=== PATIENT | female | born 2005 | race Caucasian/White ===

== ENCOUNTER 2023-11-06 06:52 | Outpatient (REF) | payer OTHER, SELFPAY ==
--- NOTE | ~2023-11-06 | US_ITS ---
EXAMINATION: US PELVIS CLINICAL INFORMATION: Irregular menses. COMPARISON: None available. TECHNIQUE: Ultrasound of the pelvis is performed using both transabdominal and transvaginal transducers along with Doppler. Transvaginal imaging is performed due to inadequate visualization transabdominally. FINDINGS: UTERUS: The uterus is anteverted and measures 7.1 x 3.2 x 3.7 cm. The double wall endometrial thickness is 5 mm. The uterus is smooth in contour and has normal myometrial echogenicity. No visible fibroid. ADNEXA: Both ovaries are visualized. Multiple follicular cysts are noted in each ovary. There is normal color flow to the adnexa. There is no ovarian torsion. There is no pelvic ascites or fluid collection. Right ovary measures 2.6 x 2.5 x 3.2 cm for a volume of 10.6 mL. Left ovary measures 2.0 x 3.0 x 2.0 cm for a volume of 6.1 mL. US/US pelvic and transvaginal IMPRESSION: Negative exam. Electronically signed by: Jamar Stacy MD 11/06/2023 08:21 PM EDT
== END 2023-11-06 06:53 | disposition home or self-care (01) ==
LOC: HO.UMASIMG 06:52
PROVIDERS: Visit Provider Family Medicine
DX: R10.2 Pelvic and perineal pain (principal); N92.6 Irregular menstruation, unspecified
CPT/HCPCS: 76830; 76856